=== PATIENT | female | born 1980 | race Caucasian/White ===

== ENCOUNTER 2019-07-05 15:27 | Emergency (ER) | payer OTHER ==
[~2019-07-05] VITALS: Ht 165.1 cm; Wt 114.0 kg
[2019-07-05 15:43] VITALS: BP 131/80
[2019-07-05] MEDS ORDERED: IBUPROFEN 600 MG TABLET. PO ONE (16:00)
--- NOTE | 2019-07-05 16:29 | RAD ---
EXAM: Right foot, 3 views HISTORY: Pain. COMPARISON: None. FINDINGS: 3 views of the right foot are obtained. There is a nondisplaced incomplete fracture of the proximal to mid aspect of the fourth metatarsal. This appears to be subacute based on adjacent periosteal reaction. There is minimal enthesopathy at the Achilles tendon insertion. There is no foreign body. IMPRESSION: Subacute appearing nondisplaced incomplete fracture of the proximal to mid fourth metatarsal. Correlate for a stress-related injury. Electronically signed by: Sabiha Abraham MD (07/05/2019 4:26 PM) [facility]
--- NOTE | 2019-07-05 16:42 | PHYS DOC ---
Past History Past Medical History: No Pertinent History Additional Past Surgical Histo: Left leg fx repair Smoking: Cigarettes Alcohol Use: None Drug Use: None General Adult EDM: Chief Complaint: FOOT INJURY PAIN HPI: HPI: 39 year old female presents with report of slip while in her basement just prior to arrival with injury to right foot. Reports sensation that something "popped" in her foot. Reports pain to lateral aspect of foot with increased pain upon ambulation or bearing weight. Reports she had to use crutches to come in to be seen in the ED today. Review of Systems: Review of Systems: Constitutional: Denies fever or chills Eyes: Denies change in visual acuity, redness, or eye pain HENT: Denies nasal congestion or sore throat Respiratory: Denies cough or shortness of breath Cardiovascular: Denies chest pain or palpitations GI: Denies abdominal pain, nausea, vomiting, or diarrhea : Denies dysuria or hematuria Musculoskeletal: Denies back pain; reports right foot pain Integument: Denies rash or skin lesions Neurologic: Denies headache, focal weakness or sensory changes Complete systems were reviewed and found to be within normal limits, except as documented in this note. Current Medications: Current Meds: Current Medications Medications (Trade) Dose Ordered Sig/Thony Start Time Stop Time Status Last Admin Dose Admin Ibuprofen (Motrin) 600 mg 1X ONCE 07/05/19 16:00 07/05/19 16:01 DC Allergies: Allergies: Allergies Coded Allergies Type Severity Reaction Last Updated Verified latex Allergy Unknown 07/05/19 Yes Physical Exam: PE: Constitutional: Well developed, well nourished, no acute distress, non-toxic appearance HENT: Normocephalic, atraumatic Eyes: Conjunctiva normal, no discharge Neck: Normal range of motion, no tenderness, supple Cardiovascular: Right foot DP and PT +2, CR < 2 sec Lungs & Thorax: No respiratory distress, equal chest rise and fall Skin: Warm, dry, no erythema, no rash Extremities: Tenderness to lateral aspect of right foot, no deformity, limb neurovascularly intact Neurologic: Alert and oriented X 3, no focal deficits noted Psychologic: Affect normal, judgement normal Current Patient Data: Vital Signs: Vital Signs Date Time Temp Pulse Resp B/P (MAP) Pulse Ox O2 Delivery O2 Flow Rate FiO2 07/05/19 15:43 97.5 87 16 131/80 (97) 97 Room Air EKG: EKG: [] Radiology/Procedures: Radiology/Procedures: PROCEDURE: FOOT RIGHT 3V EXAM: Right foot, 3 views HISTORY: Pain. COMPARISON: None. FINDINGS: 3 views of the right foot are obtained. There is a nondisplaced incomplete fracture of the proximal to mid aspect of the fourth metatarsal. This appears to be subacute based on adjacent periosteal reaction. There is minimal enthesopathy at the Achilles tendon insertion. There is no foreign body. IMPRESSION: Subacute appearing nondisplaced incomplete fracture of the proximal to mid fourth metatarsal. Correlate for a stress-related injury. Electronically signed by: Sabiha Abraham MD (07/05/2019 4:26 PM) [facility] Course & Med Decision Making: Course & Med Decision Making Pertinent Imaging studies reviewed. (See chart for details) Patient presents with right foot injury. Limb neurovascularly intact. No other injury noted. Pain addressed. ICE applied. XR obtained with findings consistent for 4th metatarsal nondisplaced fracture. CHELLE bandage and post op shoe applied. Patient educated to use the crutches she presented to ED with. Patient stable for discharge home with outpatient follow-up with PCP/Orthopedics vs Podiatry. Orthopedics and Podiatry referrals provided. Discussed findings and plan with patient, who acknowledges understanding and agreement. Katalina Disclaimer: Katalina Disclaimer: This electronic medical record was generated, in whole or in part, using a voice recognition dictation system. Splinting Splinting : Location: Right foot Pre-Made Type: and CHELLE bandage Pre-Proc Neuro Vasc Exam: normal Post-Proc Neuro Vasc Exam: normal, unchanged from pre-exam Departure Departure: Impression: Primary Impression: Fracture of 4th metatarsal Qualified Codes: S92.344A - Nondisplaced fracture of fourth metatarsal bone, right foot, initial encounter for closed fracture Disposition: HOME/RESIDENCE PRIOR TO ADM Condition: STABLE Referrals: WILLY RM MD (PCP) MACARENA WALL MD Patient Instructions: Cast Shoe, Crutch Use, [id number], Metatarsal Fracture, Undisplaced Additional Instructions: Use over the counter Tylenol and/or Ibuprofen for pain or discomfort. ICE area 20 min on then leave off for next 20 min as needed. Repeat as needed over next few days. May also call Dr. Alberto Barnes (podiatry) for follow-up at . MATTIE GARCÍA DO July 05, 2019 16:42
== END 2019-07-05 16:56 | disposition home or self-care (01) ==
LOC: ER 15:27
DX: S92.341A Displaced fracture of fourth metatarsal bone, right foot, initial encounter for closed fracture (principal); F17.210 Nicotine dependence, cigarettes, uncomplicated; Z91.041 Radiographic dye allergy status; X50.9XXA Other and unspecified overexertion or strenuous movements or postures, initial encounter; Y93.89 Activity, other specified; Y92.89 Other specified places as the place of occurrence of the external cause; Y99.8 Other external cause status
CPT/HCPCS: 73630; 99283